=== PATIENT | male | born 1965 ===

== ENCOUNTER 2016-09-15 09:41 | Inpatient (IN) | payer OTHER ==
[2016-09-15 11:43] LABS: VENOUS BLOOD GAS BASE EXCESS 4.4 mmol/L (0.0-2.0); VENOUS BLOOD GAS PCO2 52 mmHg (40-60); VENOUS BLOOD PH 7.38 (7.32-7.43)
[2016-09-15 12:10] LABS: BASO # 0.1 K/uL (0.0-0.2); BASO % 0.6 % (0.0-2.0); EOS # 0.2 K/uL (0.0-0.7); EOS % 1.7 % (0.0-4.0); LYMPH # 1.1 K/uL (1.0-4.3); LYMPH % 9.5 % (20.0-40.0); MEAN CELL VOLUME 101.9 fl (80.0-94.0); MEAN CORPUSCULAR HEMOGLOBIN 34.4 pg (27.0-31.0); MEAN CORPUSCULAR HGB CONC 33.8 g/dL (33.0-37.0); MEAN PLATELET VOLUME 7.7 fl (7.2-11.7); MONO # 0.8 K/uL (0.0-0.8); MONO % 6.3 % (0.0-10.0); NEUT # 9.8 K/uL (1.8-7.0); NEUT % 81.9 % (50.0-75.0); PLATELET COUNT 234 K/uL (130-400); RED CELL DISTRIBUTION WIDTH 17.2 % (11.5-14.5)
[2016-09-15 12:20] LABS: ALB/GLOB RATIO 0.5 (1.0-2.1); ALKALINE PHOSPHATASE 209 U/L (38-126); ALT/SGPT 60 U/L (21-72); AST/SGOT 114 U/L (17-59); BLOOD UREA NITROGEN 6 mg/dl (9-20); CALCIUM 7.9 mg/dL (8.4-10.2); CARBON DIOXIDE 25 mmol/L (22-30); CHLORIDE 99 mmol/L (98-107); GFR AFRICAN-AMERICAN > 60; GLUCOSE,RANDOM 87 mg/dL (75-110); MAGNESIUM 1.7 MG/DL (1.6-2.3); PHOSPHOROUS 3.1 mg/dl (2.5-4.5); SODIUM 136 mmol/l (132-148); TOTAL PROTEIN 7.5 G/DL (6.3-8.2)
[2016-09-15 12:24] LABS: PARTIAL THROMBOPLASTIN TIME 31.8 SECONDS (23.3-32.5)
[2016-09-15 12:48] LABS: RBC URINE 6 /hpf (0-3); URINE BACTERIA RARE (<OCC); URINE BILIRUBIN SMALL (NEGATIVE); URINE BLOOD NEGATIVE (NEGATIVE); URINE COLOR AMBER (YELLOW); URINE GLUCOSE (UA) NEG (Normal); URINE KETONE NEGATIVE (NEGATIVE); URINE LEUKOCYTE ESTERASE MOD Leu/uL (Negative); URINE PROTEIN NEGATIVE (NEGATIVE); WBC URINE 6 /hpf (0-5)
--- NOTE | 2016-09-15 13:06 | ED PDOC ---
Syncope/Near Syncope/Dizzyness Time Seen by Provider: 09/15/16 10:46 Chief Complaint (Nursing): Dizziness/Lightheaded Chief Complaint (Provider): dizziness History Per: Patient History/Exam Limitations: no limitations Onset/Duration Of Symptoms: Days (x1 week) Current Symptoms Are (Timing): Still Present Fall Associated With With Symptoms: No Severity: Mild Additional Complaint(s): Patient is a 51 year old male, who has a history of Alcoholic Cirrhosis, brought in by EMS complaining of persistent dizziness x2 days. Dizziness is associated with fatigue, shortness of breath, intermittent chest pain, and abdominal pain. He reports that he cannot walk due to lower extremity edema. Patient was recently discharged from [facility]. Patient is unable to fill his prescriptions due to lack of insurance. Patient feels that his symptoms are worsening. PMD: none Discharge summary from [facility] [place]: 51 year old male with PMHx of alcohol abuse presents to the ED with 3 days history of dizziness. Patient describes dizziness as "unsteadiness" and denies "room spinning". Patient states he has not eaten in 4 days due to poor access to food. When asked why he has not eaten, he says it is difficult to get to a store. He does report heavy alcohol consumption, with last drink 1 day ago. He drinks 6 shots of Sandrine daily. He reports history of falls with last fall yesterday. Patient did not hit his head or had LOC. He admits to abdominal pain , that is 10/10, epigastric, intermittent for the past 3-4 days. Denies vomiting , diarrhea, constipation, BRB per rectum, melena. Admits to nausea over the past 3-4 days. He has no headaches, numbness, tingling, chest pain. He reports occasional leg swelling. He also admit to cough znd SOB over the past couple of days. No fevers or chills, but has noticed "harsh sounds" coming from his chest. Pt admitted to hospital for dizziness/ataxia and abdominal pain work up, started on antibiotics for pneumonia, CIWA protocol initiated, placed on ETOH withdrawal protocal/medical therapy/precautions. CT brain negative. CT abdomen positive for cecal/ascending colon thickening suggestive of colitis. Abd U/S w/ GB sludge and mild GB wall thickening, + Eduardo's via mobile pet groomer, hepatomegaly , echogenic liver may be seen in setting of hepatic parenchymal disease or fatty infiltration, splenomegaly, enlarged L kidney. Scrotal U/S - no testicular or epididymal pathology, B/L varicoceles, nonspecific B/L skin thickening/edema, poss chronic, B/L intra-scrotal sac hyper- echogenic contents consistent with B/L inguinal fat containing hernias- no bowel peristalsing contents noted on exam or recent CT. Surgery consulted for hernia- no intervention at this time. MRCP - not completed because patient did not want to finish. limited study. no evidence of cholecystitis, pancreatitis or ductal dilation. Pt had some high BPs during hospitalization- treated with anti- hypertensive with good results. GI saw/evaluated pt with recommendations for outpatient colonoscopy/EGD and dietary modifications. Pt seen/evaluated by surgery - no surgical interventions recommended. Lipase trended down and abdominal pain resolved over course of hospitalization. Pt seen by podiatory with nail care rendered. Pt's gait improved with PT, pt reports feeling anxious while walking - will d/c home with walker. Diagnoses Alcohol abuse, ataxia, pancytopenia and transaminitis due to ETOH abuse, pneumonia, hyperbilirubinemia, transient hypokalemia, morbid obesity, paraumbilical hernia, B/L inguinal hernias, scrotal edema, HTN, abdominal pain due to pancreatitis Past Medical History Reviewed: Historical Data, Nursing Documentation, Vital Signs Vital Signs: Last Vital Signs Temp 97.5 F L 09/15/16 10:19 Pulse 100 H 09/15/16 10:19 Resp 22 09/15/16 10:19 BP 126/91 H 09/15/16 10:19 Pulse Ox 99 09/15/16 10:19 - Medical History Other PMH: Alcoholic Cirrhosis - Surgical History Surgical History: No Surg Hx - Family History Family History: States: No Known Family Hx - Home Medications Home Medications: Ambulatory Orders Medication Instructions Recorded Furosemide [Lasix] 40 mg PO DAILY 09/15/16 Losartan [Cozaar] 25 mg PO DAILY 09/15/16 Spironolactone [Aldactone] 25 mg PO DAILY 09/15/16 - Allergies Allergies/Adverse Reactions: Allergies Allergy/AdvReac Type Severity Reaction Status Date / Time Penicillins Allergy RASH Verified 09/15/16 10:19 Review of Systems ROS Statement: Except As Marked, All Systems Reviewed And Found Negative Constitutional: Positive for: Other (fatigue). Negative for: Fever, Chills Cardiovascular: Positive for: Chest Pain (intermittent) Respiratory: Positive for: Shortness of Breath Gastrointestinal: Positive for: Abdominal Pain Neurological: Positive for: Dizziness Physical Exam - Reviewed Nursing Documentation Reviewed: Yes Vital Signs Reviewed: Yes - Physical Exam Appears: Positive for: Well, Non-toxic, No Acute Distress Head Exam: Positive for: ATRAUMATIC, NORMAL INSPECTION, NORMOCEPHALIC Skin: Negative for: Normal Color (disheveled sclerosis ) Neck: Positive for: Normal, Painless ROM Cardiovascular/Chest: Positive for: Tachycardia. Negative for: Gallop, Murmur Respiratory: Positive for: Decreased Breath Sounds (Lungs decreased air entry at the bases) Gastrointestinal/Abdominal: Positive for: Soft, Other (Umbilical hernia +ruq bruising). Negative for: Tenderness Extremity: Positive for: Normal ROM, Pedal Edema (Pitting edema with venous insufficiency) Neurologic/Psych: Positive for: Alert, Oriented - Laboratory Results Result Diagrams: 09/15/16 11:24 09/15/16 11:24 - ECG O2 Sat by Pulse Oximetry: 99 (RA) Pulse Ox Interpretation: Normal Medical Decision Making Medical Decision Making: Time: 10:50 Impression: Worsening Alcohol induced cirrhosis v ACS Plan: VBG EKG B-Type Natriuretic Peptide Magnesium Stat Phosphorous Stat Troponin CBC PTT/PT CXR 1:20PM Patient labs are significant for worsening etoh cirrhosis. Patient is coagulopathic with elevated bilirubin, lfts, and lactate. EKG shows NSR with incomplete LBBB. Trop x 1 negative. Lasix and aspirin ordered. I do not believe patient can be safely discharged. He has no PMD follow-up, cannot afford his medications and has worsening of symptoms since being discharged from hospital. He cannot ambulate safely and is reporting worsening dizziness, shortness of breath, and fatigue with ambulation. Spoke to Dr. Fraser who will transfer patient to tele observation. Scribe Attestation: Documented by Yudy Elena acting as a scribe for Emily Spencer MD. MD Syedibaman Attestation: All medical record entries made by the Scribe were at my direction and personally dictated by me. I have reviewed the chart and agree that the record accurately reflects my personal performance of the history, physical exam, medical decision making, and the department course for this patient. I have also personally directed, reviewed, and agree with the discharge instructions and disposition. Disposition - Clinical Impression Clinical Impression: Dizziness, Chest pain - Disposition Disposition Time: 13:00 Condition: FAIR
[2016-09-15 13:09] LABS: EOSINOPHIL 4 % (0-7); NEUTROPHIL 82 % (42-75); TOTAL CELLS COUNTED 100
[2016-09-15 13:10] LABS: LARGE PLATELETS PRESENT
--- NOTE | 2016-09-15 13:37 | RAD ---
HISTORY: Weakness. Portable study 11:56. COMPARISON: No prior. FINDINGS: LUNGS: No active pulmonary disease. PLEURA: No significant pleural effusion identified, no pneumothorax apparent. CARDIOVASCULAR: Cardiomegaly. No evidence of acute, significant cardiovascular disease. OSSEOUS STRUCTURES: No significant abnormalities. VISUALIZED UPPER ABDOMEN: Normal. OTHER FINDINGS: None. IMPRESSION: No active disease.
[2016-09-15 14:36] LABS: VENOUS BLOOD GAS BASE EXCESS 5.2 mmol/L (0.0-2.0); VENOUS BLOOD GAS PCO2 39 mmHg (40-60); VENOUS BLOOD PH 7.48 (7.32-7.43)
--- NOTE | 2016-09-15 15:38 | CP.PCM.HP ---
History of Present Illness - History of Present Illness History of Present Illness: 51 yo male with history of Alcoholic Liver Cirrhosis brought in because of dizziness, weakness and easy fatigability. He also has difficulty ambulating because of marked swelling of both legs. Patient was recently admitted for the same problem at [facility] and discharged on 09/09/2016. Patient however was not able to fill prescriptions due to lack of insurance and money. Present on Admission - Present on Admission Any Indicators Present on Admission: No History of DVT/PE: No History of Uncontrolled Diabetes: No Urinary Catheter: No Decubitus Ulcer Present: No Review of Systems - Review of Systems All systems: reviewed and no additional remarkable complaints except (aside from those mentioned above, 12 point system review were negative by me) Past Patient History - Past Social History Smoking Status: Never Smoked Chewing Tobacco Use: No Cigar Use: No Alcohol: > 2 Drinks/Day Drugs: Denies Home Situation {Lives}: Homeless - CARDIAC Hx Cardiac Disorders: No - PULMONARY Hx Respiratory Disorders: No - NEUROLOGICAL Hx Neurological Disorder: No - HEENT Hx HEENT Problems: No - RENAL Hx Chronic Kidney Disease: No - ENDOCRINE/METABOLIC Other/Comment: Morbid Obesity - HEMATOLOGICAL/ONCOLOGICAL Hx Blood Disorders: No - INTEGUMENTARY Hx Dermatological Problems: No - MUSCULOSKELETAL/RHEUMATOLOGICAL Hx Falls: Yes - GASTROINTESTINAL Other/Comment: Alcoholic Liver Cirrhosis - GENITOURINARY/GYNECOLOGICAL Hx Genitourinary Disorders: No - PSYCHIATRIC Hx Substance Use: Yes (alcohol abuse) - SURGICAL HISTORY Hx Surgeries: No - ANESTHESIA Hx Anesthesia: No Meds Allergies/Adverse Reactions: Allergies Allergy/AdvReac Type Severity Reaction Status Date / Time Penicillins Allergy RASH Verified 09/15/16 10:19 Physical Exam - Constitutional Appears: No Acute Distress - Head Exam Head Exam: ATRAUMATIC - Eye Exam Eye Exam: Scleral icterus - ENT Exam ENT Exam: Mucous Membranes Moist - Neck Exam Neck exam: Negative for: Meningismus - Respiratory Exam Respiratory Exam: absent: Rhonchi, Wheezes, Respiratory Distress - Cardiovascular Exam Cardiovascular Exam: REGULAR RHYTHM, +S1, +S2 - GI/Abdominal Exam GI & Abdominal Exam: Hernia (umbilical hernia), Soft. absent: Tenderness - Rectal Exam Rectal Exam: Deferred - Extremities Exam Extremities exam: Positive for: pedal edema. Negative for: calf tenderness - Back Exam Back exam: absent: tenderness - Neurological Exam Neurological exam: Alert, Oriented x3 - Psychiatric Exam Psychiatric exam: Normal Affect - Skin Skin Exam: Dry, Intact Results - Vital Signs Recent Vital Signs: Last Vital Signs Temp 98.5 F 09/15/16 15:00 Pulse 88 09/15/16 15:00 Resp 20 09/15/16 15:00 BP 136/74 09/15/16 15:00 Pulse Ox 96 09/15/16 15:00 - Labs Result Diagrams: 09/15/16 11:24 09/15/16 11:24 Labs: Laboratory Results - last 24 hr 09/15/16 09/15/16 14:15 14:32 pO2 42 VBG pH 7.48 H VBG pCO2 39 L VBG HCO3 28.6 VBG Total CO2 30.2 H VBG O2 Sat (Calc) 85.4 H VBG Base Excess 5.2 H VBG Potassium 3.5 L A-a O2 Difference 59.0 Sodium 130.0 L Chloride 103.0 Glucose 96 Lactate 1.2 FiO2 21.0 Crit Value Called To Md isatu hernandez Crit Value Called By 15 Crit Value Read Back Y Blood Gas Notified Time 1436 Ammonia 43 Venous Blood Potassium 3.5 L Assessment & Plan (1) Dizziness Status: Acute Comment: place on observation in telemetry. Troponin and EKG in am (2) Liver cirrhosis Status: Acute Comment: GI consult. Thiamine 100mg PO daily. Folic Acid 1mg PO daily. Ativan 1mg IV q 4hrs prn for agitation (3) Leg swelling Status: Acute Comment: venous doppler. refer to PT for evaluation and management
[2016-09-16 06:43] LABS: BASO # 0.1 K/uL (0.0-0.2); BASO % 1.1 % (0.0-2.0); EOS # 0.3 K/uL (0.0-0.7); EOS % 3.4 % (0.0-4.0); LYMPH % 9.8 % (20.0-40.0); MEAN CELL VOLUME 101.5 fl (80.0-94.0); MEAN CORPUSCULAR HEMOGLOBIN 34.9 pg (27.0-31.0); MEAN CORPUSCULAR HGB CONC 34.4 g/dL (33.0-37.0); MEAN PLATELET VOLUME 7.6 fl (7.2-11.7); MONO # 0.5 K/uL (0.0-0.8); MONO % 5.2 % (0.0-10.0); NEUT # 8.2 K/uL (1.8-7.0); NEUT % 80.5 % (50.0-75.0); RED CELL DISTRIBUTION WIDTH 17.3 % (11.5-14.5); WHITE BLOOD COUNT 10.1 K/uL (4.8-10.8)
[2016-09-16 06:51] LABS: ALB/GLOB RATIO 0.5 (1.0-2.1); ALKALINE PHOSPHATASE 185 U/L (38-126); ALT/SGPT 58 U/L (21-72); AST/SGOT 116 U/L (17-59); BLOOD UREA NITROGEN 6 mg/dl (9-20); CALCIUM 7.4 mg/dL (8.4-10.2); CARBON DIOXIDE 26 mmol/L (22-30); CHLORIDE 100 mmol/L (98-107); GFR AFRICAN-AMERICAN > 60; GLUCOSE,RANDOM 95 mg/dL (75-110); PARTIAL THROMBOPLASTIN TIME 32.4 SECONDS (23.3-32.5); POTASSIUM 3.5 MMOL/L (3.6-5.0); SODIUM 135 mmol/l (132-148); TOTAL PROTEIN 6.6 G/DL (6.3-8.2)
[2016-09-16] MEDS ORDERED: Vitamin A/D oint 60G TP SCH (10:15)
[2016-09-16] MEDS: Vitamins A & D Oint UD Foilpak TOP SCH ×2 (12:55→16:43)
--- NOTE | 2016-09-16 15:04 | US ---
PROCEDURE: Bilateral lower extremity venous duplex Doppler. HISTORY: Evaluate for deep venous thrombosis COMPARISON: None available. TECHNIQUE: Bilateral common femoral, superficial femoral, popliteal and posterior tibial veins were evaluated. Flow was assessed with color Doppler, compressibility, assessment of phasic flow and augmentation response. FINDINGS: COMMON FEMORAL VEIN: Right CFV: There is normal color flow, compressibility and augmentation response. Left CFV: There is normal color flow, compressibility and augmentation response. SUPERFICIAL FEMORAL VEIN: Right SFV: There is normal color flow, compressibility and augmentation response. Left SFV: There is normal color flow, compressibility and augmentation response. POPLITEAL VEIN: Right Popliteal: There is normal color flow, compressibility and augmentation response. Left Popliteal: There is normal color flow, compressibility and augmentation response. POSTERIOR TIBIAL VEIN: Right PTV: There is normal color flow, compressibility and augmentation response. Left PTV: There is normal color flow, compressibility and augmentation response. OTHER FINDINGS: There is diffuse subcutaneous edema. IMPRESSION: No evidence of deep venous thrombosis.
[2016-09-16] MEDS ORDERED: Potassium Chloride 20 mEq ER Tab PO ONE (15:52)
--- NOTE | 2016-09-16 15:59 | CP.PCM.PN ---
Subjective - Date & Time of Evaluation Date of Evaluation: 09/16/16 Time of Evaluation: 12:00 - Subjective Subjective: no fever no CP no SOB no abd pain Complains of bilat LE edema, scrotal edema dizziness resolved Objective - Vital Signs/Intake and Output Vital Signs (last 24 hours): Temp Pulse Resp BP Pulse Ox 98.1 F 74 20 135/76 99 09/16/16 12:26 09/16/16 12:54 09/16/16 12:26 09/16/16 12:54 09/16/16 12:26 - Medications Medications: Current Medications Clotrimazole (Lotrimin 1% Cream) 1 applic TOP BID [facility] Folic Acid (Folic Acid) 1 mg PO DAILY [facility] Last Admin: 09/16/16 08:53 Dose: 1 mg Furosemide (Lasix) 40 mg PO DAILY [facility] Last Admin: 09/16/16 08:52 Dose: 40 mg Furosemide (Lasix) 40 mg IV DAILY [facility] Lorazepam (Ativan) 1 mg IVP Q4 PRN PRN Reason: Agitation Propranolol HCl (Inderal) 10 mg PO TID [facility] Last Admin: 09/16/16 12:54 Dose: 10 mg Spironolactone (Aldactone) 25 mg PO BID [facility] Last Admin: 09/16/16 08:53 Dose: 25 mg Thiamine HCl (Vitamin B1 Tab) 100 mg PO DAILY [facility] Last Admin: 09/16/16 08:53 Dose: 100 mg Vitamin A (Vitamin A & D Oint Ud Foilpak) 1 ea TOP BID [facility] Last Admin: 09/16/16 12:55 Dose: 1 ea - Labs Labs: 09/16/16 05:05 09/16/16 05:05 PT 16.3 SECONDS (9.6-11.2) H 09/16/16 05:05 INR 1.57 (0.92-1.08) H 09/16/16 05:05 APTT 32.4 SECONDS (23.3-32.5) 09/16/16 05:05 - Constitutional Appears: No Acute Distress, Chronically Ill - Head Exam Head Exam: NORMAL INSPECTION, NORMOCEPHALIC - Eye Exam Eye Exam: EOMI, Normal appearance, PERRL Pupil Exam: NORMAL ACCOMODATION - ENT Exam ENT Exam: Mucous Membranes Moist, Normal External Ear Exam - Neck Exam Neck Exam: Full ROM. absent: Meningismus - Respiratory Exam Respiratory Exam: NORMAL BREATHING PATTERN. absent: Respiratory Distress - Cardiovascular Exam Cardiovascular Exam: REGULAR RHYTHM, +S1, +S2 - GI/Abdominal Exam GI & Abdominal Exam: Distended, Soft, Normal Bowel Sounds. absent: Tenderness Additional comments: ascites - Extremities Exam Extremities Exam: Full ROM, Normal Capillary Refill, Pedal Edema. absent: Calf Tenderness Additional comments: bilat LE stasis skin changes - Back Exam Back Exam: Full ROM. absent: CVA tenderness (L), CVA tenderness (R) - Neurological Exam Neurological Exam: Alert, Awake, CN II-XII Intact, Normal Gait, Oriented x3 Neuro motor strength exam: Left Upper Extremity: 5, Right Upper Extremity: 5, Left Lower Extremity: 5, Right Lower Extremity: 5 - Psychiatric Exam Psychiatric exam: Normal Affect, Normal Mood - Skin Skin Exam: Dry, Normal Color, Warm Assessment and Plan (1) Dizziness Status: Acute (2) Liver cirrhosis Status: Chronic (3) Anasarca Status: Chronic (4) Coagulopathy Status: Chronic (5) Alcoholism Status: Acute (6) DVT prophylaxis Status: Acute - Assessment and Plan (Free Text) Assessment: 51 y/o gent with hx of Alcoholism, Cirrhosis , was brought in by ambulance bec of dizziness and bilateral leg edema. (1) Dizziness, resolved, likely related to his Cirrhosis Status: Acute Trop negative VS stable (2) Liver cirrhosis with ascites , coagulopathy, Status: Chronic Hx of Alcoholism start Lasix IV cont Aldactone star5t Propanolol Vit K x 1 (3) Anasarca, generalized Status: Chronic pt with ascites, leg edema, scrotal swelling elevate scrotum IV Lasix, Aldactone (4) Coagulopathy sec to liver cirrhosis Status: Chronic Vit K PO x 1 ( 5) History Alcoholism no recent ETOH Thiamine and Folic acid (6) DVT prophylaxis Status: Acute no anticoag due to coagulopathy
--- NOTE | 2016-09-16 18:12 | CARD ---
APPROVED REPORT EKG Measurement Heart [id number] <Conclusion> Normal sinus rhythm Low voltage QRS Incomplete left bundle branch block Borderline ECG
[2016-09-17 06:11] LABS: HEMATOCRIT 31.3 % (35.0-51.0); MEAN CELL VOLUME 102.5 fl (80.0-94.0); MEAN CORPUSCULAR HEMOGLOBIN 34.6 pg (27.0-31.0); MEAN CORPUSCULAR HGB CONC 33.7 g/dL (33.0-37.0); RED CELL DISTRIBUTION WIDTH 17.1 % (11.5-14.5); WHITE BLOOD COUNT 11.4 K/uL (4.8-10.8)
[2016-09-17 06:26] LABS: ALB/GLOB RATIO 0.5 (1.0-2.1); ALKALINE PHOSPHATASE 193 U/L (38-126); ALT/SGPT 53 U/L (21-72); AST/SGOT 120 U/L (17-59); BILIRUBIN,TOTAL 4.2 mg/dl (0.2-1.3); BLOOD UREA NITROGEN 7 mg/dl (9-20); CALCIUM 7.3 mg/dL (8.4-10.2); CARBON DIOXIDE 27 mmol/L (22-30); CHLORIDE 98 mmol/L (98-107); GFR AFRICAN-AMERICAN > 60; GLUCOSE,RANDOM 93 mg/dL (75-110); POTASSIUM 3.3 MMOL/L (3.6-5.0); SODIUM 134 mmol/l (132-148); TOTAL PROTEIN 6.4 G/DL (6.3-8.2)
[2016-09-17] MEDS ORDERED: Potassium Chloride 20 mEq ER Tab PO ONE (08:12)
[2016-09-17] MEDS: Vitamins A & D Oint UD Foilpak TOP SCH ×2 (09:23→16:27)
--- NOTE | 2016-09-17 10:18 | CP.PCM.PN ---
Subjective - Date & Time of Evaluation Date of Evaluation: 09/17/16 Time of Evaluation: 09:30 - Subjective Subjective: No fever leg edema and scrotal edema sl better denies CP no SOB no abd pain Pt states last ETOH drink was 20 days ago Objective - Vital Signs/Intake and Output Vital Signs (last 24 hours): Temp Pulse Resp BP Pulse Ox 98.4 F 71 18 133/69 97 09/17/16 07:58 09/17/16 09:21 09/17/16 07:58 09/17/16 09:22 09/17/16 07:58 - Medications Medications: Current Medications Clotrimazole (Lotrimin 1% Cream) 1 applic TOP BID [facility] Last Admin: 09/17/16 09:23 Dose: 1 applic Folic Acid (Folic Acid) 1 mg PO DAILY [facility] Last Admin: 09/17/16 09:21 Dose: 1 mg Furosemide (Lasix) 40 mg IV Q12 [facility] Last Admin: 09/17/16 09:22 Dose: 40 mg Levofloxacin/Dextrose (Levaquin 500mg) 100 mls @ 100 mls/hr IVPB DAILY [facility] Lorazepam (Ativan) 1 mg IVP Q4 PRN PRN Reason: Agitation Propranolol HCl (Inderal) 10 mg PO TID [facility] Last Admin: 09/17/16 09:21 Dose: 10 mg Spironolactone (Aldactone) 50 mg PO BID [facility] Last Admin: 09/17/16 09:21 Dose: 50 mg Thiamine HCl (Vitamin B1 Tab) 100 mg PO DAILY [facility] Last Admin: 09/17/16 09:21 Dose: 100 mg Vitamin A (Vitamin A & D Oint Ud Foilpak) 1 ea TOP BID [facility] Last Admin: 09/17/16 09:23 Dose: 1 ea - Labs Labs: 09/17/16 05:53 09/17/16 05:53 PT 16.0 SECONDS (9.6-11.2) H 09/17/16 05:53 INR 1.54 (0.92-1.08) H 09/17/16 05:53 APTT 32.4 SECONDS (23.3-32.5) 09/16/16 05:05 - Constitutional Appears: No Acute Distress, Chronically Ill - Head Exam Head Exam: NORMAL INSPECTION, NORMOCEPHALIC - Eye Exam Eye Exam: EOMI, Normal appearance, PERRL Pupil Exam: NORMAL ACCOMODATION - ENT Exam ENT Exam: Mucous Membranes Moist, Normal External Ear Exam - Neck Exam Neck Exam: Full ROM. absent: Meningismus - Respiratory Exam Respiratory Exam: NORMAL BREATHING PATTERN. absent: Respiratory Distress - Cardiovascular Exam Cardiovascular Exam: REGULAR RHYTHM, +S1, +S2 - GI/Abdominal Exam GI & Abdominal Exam: Distended, Soft, Normal Bowel Sounds. absent: Tenderness Additional comments: ascites umbilical hernia - Extremities Exam Extremities Exam: Full ROM, Normal Capillary Refill, Pedal Edema. absent: Calf Tenderness Additional comments: bilat LE stasis skin changes, small skin tear LLE ( POA) - Back Exam Back Exam: Full ROM. absent: CVA tenderness (L), CVA tenderness (R) Genital - scrotal swelling - Neurological Exam Neurological Exam: Alert, Awake, CN II-XII Intact, Normal Gait, Oriented x3 Neuro motor strength exam: Left Upper Extremity: 5, Right Upper Extremity: 5, Left Lower Extremity: 5, Right Lower Extremity: 5 - Psychiatric Exam Psychiatric exam: Normal Affect, Normal Mood - Skin Skin Exam: Dry, Normal Color, Warm Assessment and Plan (1) Dizziness Status: Acute (2) Liver cirrhosis Status: Chronic (3) Anasarca Status: Chronic (4) Coagulopathy Status: Chronic (5) Alcoholism Status: Acute (6) DVT prophylaxis Status: Acute - Assessment and Plan (Free Text) Assessment: 51 y/o gent with hx of Alcoholism, Cirrhosis , was brought in by ambulance bec of dizziness and bilateral leg edema. (1) Dizziness, resolved, likely related to his Cirrhosis Status: Acute Trop negative VS stable (2) Liver cirrhosis with ascites , coagulopathy, Status: Chronic Hx of Alcoholism started Lasix IV 40 q 12 monitor K cont Aldactone started Propanolol Vit K x 1 given (3) Anasarca, generalized Status: Chronic pt with ascites, leg edema, scrotal swelling elevate scrotum IV Lasix, Aldactone IR for Paracentesis (4) Coagulopathy sec to liver cirrhosis Status: Chronic Vit K PO x 1 ( 5) History Alcoholism no recent ETOH Thiamine and Folic acid (6) DVT prophylaxis Status: Acute no anticoag due to coagulopathy (7) Gait disturbance due to severe pedal edema PT consulted rec TCU however pt has no insurance, will maximize PT while in house Rolling walker IV diuresis while in the hospital (8) Small Skin Tear LLE due to stasis and edema ( POA) - small area of skin tear - paint specialist consulted
[2016-09-17 21:49] VITALS: RESP 20
[2016-09-18 08:41] LABS: HEMATOCRIT 32.2 % (35.0-51.0); MEAN CELL VOLUME 102.1 fl (80.0-94.0); MEAN CORPUSCULAR HEMOGLOBIN 34.5 pg (27.0-31.0); MEAN CORPUSCULAR HGB CONC 33.8 g/dL (33.0-37.0); RED CELL DISTRIBUTION WIDTH 17.6 % (11.5-14.5); WHITE BLOOD COUNT 11.5 K/uL (4.8-10.8)
[2016-09-18 09:05] LABS: ALB/GLOB RATIO 0.5 (1.0-2.1); ALKALINE PHOSPHATASE 208 U/L (38-126); ALT/SGPT 57 U/L (21-72); AST/SGOT 145 U/L (17-59); BILIRUBIN,TOTAL 4.5 mg/dl (0.2-1.3); BLOOD UREA NITROGEN 8 mg/dl (9-20); CALCIUM 7.4 mg/dL (8.4-10.2); CARBON DIOXIDE 29 mmol/L (22-30); CHLORIDE 95 mmol/L (98-107); GFR AFRICAN-AMERICAN > 60; GLUCOSE,RANDOM 118 mg/dL (75-110); POTASSIUM 3.9 MMOL/L (3.6-5.0); SODIUM 134 mmol/l (132-148); TOTAL PROTEIN 6.8 G/DL (6.3-8.2)
[2016-09-18] MEDS: Pantoprazole 40 mg EC Tab PO SCH (10:18)
[2016-09-18] MEDS: Vitamins A & D Oint UD Foilpak TOP SCH ×2 (10:18→16:44)
--- NOTE | 2016-09-18 10:53 | CP.PCM.PN ---
Subjective - Date & Time of Evaluation Date of Evaluation: 09/18/16 Time of Evaluation: 10:45 - Subjective Subjective: No fever Gait improving, ambulates with walker no CP no SOB Abdominal distention bilat leg edema, scrotal edema Objective - Vital Signs/Intake and Output Vital Signs (last 24 hours): Temp Pulse Resp BP Pulse Ox 98.6 F 66 20 155/81 H 98 09/18/16 07:55 09/18/16 10:17 09/18/16 07:55 09/18/16 10:17 09/18/16 07:55 Intake and Output: 09/18/16 09/18/16 06:59 18:59 Intake Total 840 Output Total 910 Balance -70 - Medications Medications: Current Medications Clotrimazole (Lotrimin 1% Cream) 1 applic TOP BID [facility] Last Admin: 09/18/16 10:32 Dose: 1 applic Folic Acid (Folic Acid) 1 mg PO DAILY [facility] Last Admin: 09/18/16 10:17 Dose: 1 mg Furosemide (Lasix) 40 mg IV Q12 [facility] Last Admin: 09/17/16 20:57 Dose: 40 mg Levofloxacin/Dextrose (Levaquin 500mg) 100 mls @ 100 mls/hr IVPB DAILY [facility] Last Admin: 09/18/16 10:32 Dose: 100 mls/hr Lorazepam (Ativan) 1 mg IVP Q4 PRN PRN Reason: Agitation Pantoprazole Sodium (Protonix Ec Tab) 40 mg PO DAILY [facility] Last Admin: 09/18/16 10:18 Dose: 40 mg Propranolol HCl (Inderal) 10 mg PO TID [facility] Last Admin: 09/18/16 10:17 Dose: 10 mg Spironolactone (Aldactone) 50 mg PO TID [facility] Thiamine HCl (Vitamin B1 Tab) 100 mg PO DAILY [facility] Last Admin: 09/18/16 10:18 Dose: 100 mg Vitamin A (Vitamin A & D Oint Ud Foilpak) 1 ea TOP BID [facility] Last Admin: 09/18/16 10:18 Dose: 1 ea - Labs Labs: 09/18/16 06:40 09/18/16 06:40 PT 16.0 SECONDS (9.6-11.2) H 09/17/16 05:53 INR 1.54 (0.92-1.08) H 09/17/16 05:53 APTT 32.4 SECONDS (23.3-32.5) 09/16/16 05:05 - Constitutional Appears: No Acute Distress, Chronically Ill - Head Exam Head Exam: NORMAL INSPECTION, NORMOCEPHALIC - Eye Exam Eye Exam: EOMI, Normal appearance, PERRL Pupil Exam: NORMAL ACCOMODATION - ENT Exam ENT Exam: Mucous Membranes Moist, Normal External Ear Exam - Neck Exam Neck Exam: Full ROM. absent: Meningismus - Respiratory Exam Respiratory Exam: NORMAL BREATHING PATTERN. absent: Respiratory Distress - Cardiovascular Exam Cardiovascular Exam: REGULAR RHYTHM, +S1, +S2 - GI/Abdominal Exam GI & Abdominal Exam: Distended, Soft, Normal Bowel Sounds. absent: Tenderness Additional comments: ascites umbilical hernia - Extremities Exam Extremities Exam: Full ROM, Normal Capillary Refill, Pedal Edema. absent: Calf Tenderness Additional comments: bilat LE stasis skin changes, small skin tear LLE ( POA) - Back Exam Back Exam: Full ROM. absent: CVA tenderness (L), CVA tenderness (R) Genital - scrotal swelling - Neurological Exam Neurological Exam: Alert, Awake, CN II-XII Intact, Normal Gait, Oriented x3 Neuro motor strength exam: Left Upper Extremity: 5, Right Upper Extremity: 5, Left Lower Extremity: 5, Right Lower Extremity: 5 - Psychiatric Exam Psychiatric exam: Normal Affect, Normal Mood - Skin Skin Exam: Dry, Normal Color, Warm Assessment and Plan (1) Dizziness Status: Acute (2) Liver cirrhosis Status: Chronic (3) Anasarca Status: Chronic (4) Coagulopathy Status: Chronic (5) Alcoholism Status: Acute (6) DVT prophylaxis Status: Acute - Assessment and Plan (Free Text) Assessment: 51 y/o Homeless luis miguel with hx of Alcoholism, Cirrhosis , was brought in by ambulance bec of dizziness and bilateral leg edema. Pt has gait imbalance due to severe leg edema , PT consulted and will maximize diuresis and d/c pt to [facility] (1) Dizziness, resolved, likely related to his Cirrhosis Status: Acute Trop negative VS stable (2) Liver cirrhosis with ascites , coagulopathy, Status: Chronic Hx of Alcoholism started Lasix IV 40 q 12 monitor K cont Aldactone, increase to 50mg tid started Propanolol Vit K x 1 given IV Levaquin for SBP proph (3) Anasarca, generalized Status: Chronic pt with ascites, leg edema, scrotal swelling elevate scrotum IV Lasix, Aldactone IR for Paracentesis , large volume will give IV albumin in am prior to Paracentesis (4) Coagulopathy sec to liver cirrhosis Status: Chronic Vit K PO x 1 ( 5) History Alcoholism no recent ETOH Thiamine and Folic acid (6) DVT prophylaxis Status: Acute no anticoag due to coagulopathy (7) Gait disturbance due to severe pedal edema PT consulted rec TCU however pt has no insurance, will maximize PT while in house Rolling walker IV diuresis while in the hospital (8) Small Skin Tear LLE due to stasis and edema ( POA) - small area of skin tear - bioinformatics support specialist consulted (9) Hypokalemia sec to diuretics replace with PO KCl
[2016-09-19 07:34] LABS: HEMATOCRIT 31.1 % (35.0-51.0); MEAN CORPUSCULAR HGB CONC 33.8 g/dL (33.0-37.0); RED CELL DISTRIBUTION WIDTH 17.7 % (11.5-14.5); WHITE BLOOD COUNT 9.7 K/uL (4.8-10.8)
[2016-09-19 07:36] LABS: BLOOD UREA NITROGEN 8 mg/dl (9-20); CARBON DIOXIDE 31 mmol/L (22-30); CHLORIDE 94 mmol/L (98-107); GFR AFRICAN-AMERICAN > 60; GLUCOSE,RANDOM 92 mg/dL (75-110); SODIUM 134 mmol/l (132-148)
[2016-09-19 07:37] LABS: CALCIUM 7.3 mg/dL (8.4-10.2)
[2016-09-19 07:38] LABS: MEAN CELL VOLUME 103.6 fl (80.0-94.0)
[2016-09-19 07:44] LABS: PARTIAL THROMBOPLASTIN TIME 32.3 SECONDS (23.3-32.5)
[2016-09-19] MEDS ORDERED: Albumin Human 25% (12.5 gm/50 ml) IV ONE (08:00)
[2016-09-19] MEDS: Pantoprazole 40 mg EC Tab PO SCH (09:12)
[2016-09-19] MEDS: Vitamins A & D Oint UD Foilpak TOP SCH (09:16)
--- NOTE | 2016-09-19 16:09 | CP.PCM.DIS ---
Provider - Provider Date of Admission: 09/16/16 15:58 Attending physician: Fuentes Fraser MD Primary care physician: None Time Spent in preparation of Discharge (in minutes): 20 Hospital Course - Lab Results Lab Results: Most Recent Lab Values WBC 9.7 K/uL (4.8-10.8) 09/19/16 05:45 RBC 3.00 Mil/uL (4.40-5.90) L 09/19/16 05:45 Hgb 10.5 g/dL (12.0-18.0) L 09/19/16 05:45 Hct 31.1 % (35.0-51.0) L 09/19/16 05:45 MCV 103.6 fl (80.0-94.0) H 09/19/16 05:45 MCH 35.0 pg (27.0-31.0) H 09/19/16 05:45 MCHC 33.8 g/dL (33.0-37.0) 09/19/16 05:45 RDW 17.7 % (11.5-14.5) H 09/19/16 05:45 Plt Count 216 K/uL (130-400) 09/19/16 05:45 MPV 7.6 fl (7.2-11.7) 09/16/16 05:05 Neut % (Auto) 80.5 % (50.0-75.0) H 09/16/16 05:05 Lymph % (Auto) 9.8 % (20.0-40.0) L 09/16/16 05:05 [place] % (Auto) 5.2 % (0.0-10.0) 09/16/16 05:05 Eos % (Auto) 3.4 % (0.0-4.0) 09/16/16 05:05 Baso % (Auto) 1.1 % (0.0-2.0) 09/16/16 05:05 Neut # 8.2 K/uL (1.8-7.0) H 09/16/16 05:05 Lymph # 1.0 K/uL (1.0-4.3) 09/16/16 05:05 [place] # 0.5 K/uL (0.0-0.8) 09/16/16 05:05 Eos # 0.3 K/uL (0.0-0.7) 09/16/16 05:05 Baso # 0.1 K/uL (0.0-0.2) 09/16/16 05:05 Neutrophils % (Manual) 82 % (42-75) H 09/15/16 11:24 Band Neutrophils % 3 % (0-2) H 09/15/16 11:24 Lymphocytes % (Manual) 2 % (20-50) L 09/15/16 11:24 Monocytes % (Manual) 9 % (0-10) 09/15/16 11:24 Eosinophils % (Manual) 4 % (0-7) 09/15/16 11:24 Platelet Estimate Normal (NORMAL) 09/15/16 11:24 Large Platelets Present 09/15/16 11:24 Anisocytosis (manual) Slight 09/15/16 11:24 Macrocytosis (manual) Slight 09/15/16 11:24 PT 16.6 SECONDS (9.6-11.2) H 09/19/16 05:45 INR 1.60 (0.92-1.08) H 09/19/16 05:45 APTT 32.3 SECONDS (23.3-32.5) 09/19/16 05:45 pO2 42 mm/Hg (30-55) 09/15/16 14:32 VBG pH 7.48 (7.32-7.43) H 09/15/16 14:32 VBG pCO2 39 mmHg (40-60) L 09/15/16 14:32 VBG HCO3 28.6 mmol/L 09/15/16 14:32 VBG Total CO2 30.2 mmol/L (22-28) H 09/15/16 14:32 VBG O2 Sat (Calc) 85.4 % (40-65) H 09/15/16 14:32 VBG Base Excess 5.2 mmol/L (0.0-2.0) H 09/15/16 14:32 VBG Potassium 3.5 mmol/L (3.6-5.2) L 09/15/16 14:32 A-a O2 Difference 59.0 mm/Hg 09/15/16 14:32 Sodium 130.0 mmol/L (132-148) L 09/15/16 14:32 Chloride 103.0 mmol/L (98-107) 09/15/16 14:32 Glucose 96 mg/dL (75-110) 09/15/16 14:32 Lactate 1.2 mmol/L (0.7-2.1) 09/15/16 14:32 FiO2 21.0 % 09/15/16 14:32 Crit Value Called To Md isatu hernandez 09/15/16 14:32 Crit Value Called By 15 09/15/16 14:32 Crit Value Read Back Y 09/15/16 14:32 Blood Gas Notified Time 1436 09/15/16 14:32 Sodium 134 mmol/l (132-148) 09/19/16 05:45 Potassium 4.0 MMOL/L (3.6-5.0) 09/19/16 05:45 Chloride 94 mmol/L (98-107) L 09/19/16 05:45 Carbon Dioxide 31 mmol/L (22-30) H 09/19/16 05:45 Anion Gap 13 (10-20) 09/19/16 05:45 BUN 8 mg/dl (9-20) L 09/19/16 05:45 Creatinine 0.8 mg/dL (0.8-1.5) 09/19/16 05:45 Est GFR ( Amer) > 60 09/19/16 05:45 Est GFR (Non-Af Amer) > 60 09/19/16 05:45 Random Glucose 92 mg/dL (75-110) 09/19/16 05:45 Calcium 7.3 mg/dL (8.4-10.2) L 09/19/16 05:45 Phosphorus 3.1 mg/dl (2.5-4.5) 09/15/16 11:24 Magnesium 1.7 MG/DL (1.6-2.3) 09/15/16 11:24 Total Bilirubin 4.5 mg/dl (0.2-1.3) H 09/18/16 06:40 AST 145 U/L (17-59) H D 09/18/16 06:40 ALT 57 U/L (21-72) 09/18/16 06:40 Alkaline Phosphatase 208 U/L (38-126) H 09/18/16 06:40 Ammonia 43 umo/L (16-60) 09/15/16 14:15 Troponin I < 0.0120 ng/mL (0.00-0.120) 09/15/16 11:24 NT-Pro-B Natriuret Pep 847 pg/ml (0-900) 09/15/16 11:24 Total Protein 6.8 G/DL (6.3-8.2) 09/18/16 06:40 Albumin 2.2 g/dL (3.5-5.0) L 09/18/16 06:40 Globulin 4.6 gm/dL (2.2-3.9) H 09/18/16 06:40 Albumin/Globulin Ratio 0.5 (1.0-2.1) L 09/18/16 06:40 Venous Blood Potassium 3.5 mmol/L (3.6-5.2) L 09/15/16 14:32 Urine Color Luana (YELLOW) 09/15/16 12:15 Urine Clarity Slighty-cloudy (Clear) 09/15/16 12:15 Urine pH 7.0 (5.0-8.0) 09/15/16 12:15 Ur Specific [place] 1.011 (1.003-1.030) 09/15/16 12:15 Urine Protein Negative mg/dL (NEGATIVE) 09/15/16 12:15 Urine Glucose (UA) Neg mg/dL (Normal) 09/15/16 12:15 Urine Ketones Negative mg/dL (NEGATIVE) 09/15/16 12:15 Urine Blood Negative (NEGATIVE) 09/15/16 12:15 Urine Nitrate Negative (NEGATIVE) 09/15/16 12:15 Urine Bilirubin Small (NEGATIVE) 09/15/16 12:15 Urine Urobilinogen 4.0 mg/dL (0.2-1.0) 09/15/16 12:15 Ur Leukocyte Esterase Mod Michelle/uL (Negative) 09/15/16 12:15 Urine RBC (Auto) 6 /hpf (0-3) H 09/15/16 12:15 Urine Microscopic WBC 6 /hpf (0-5) H 09/15/16 12:15 Ur Squamous Epith Cells 7 /hpf (0-5) H 09/15/16 12:15 Urine Bacteria Rare (<OCC) 09/15/16 12:15 - Hospital Course Hospital Course: 51 y/o Homeless gent with hx of Alcoholism, Cirrhosis, ataxia, transaminitis due to ETOH abuse,morbid obesity, paraumbilical hernia, B/L inguinal hernias, scrotal edema, HTN, was brought in by ambulance because of dizziness and bilateral leg edema. Patient was just discharged from [facility] 09/09 after being treated for gait instability and ataxia with physical therapy and was discharged to half-way with rolling walker. Patient stated that was not able to buy his medications because he does not have any income. He states that does not want to go to half-way because he might get more sick Patient was admitted again for gait instability , dizziness, anasarca . He was treated with diuretics , lasix, aldactone with some improvement of his edema He refused abdominal parasenthesis stating that the procedure is painful Physical therapy was consulted for gait eval and gait training. Patient able to ambulate with steady gait with his walker.At present patient is at his baseline , hemodynamically atable, afebrile, with no source of infection. Counselled patient on ETOH abuse , personal hygiene especially feet care. stucco worker was consulted to provide information about half-way Will discharge patient to half-way since at this time there is no acute active medical problems to be addressed and main issue seems to be of social nature. Information provided about half-way (1) Dizziness, resolved, likely related to his Cirrhosis (2) Liver cirrhosis with ascites , coagulopathy, continue aldactone, lasix , propanolol refused abdominal parasenthesis (3) Anasarca, generalized pt with ascites, leg edema, scrotal swelling improved minimally with diuretics continue Lasix, Aldactone IR consulted for olarge volume Paracentesis but patient refsued (4) Coagulopathy sec to liver cirrhosis Chronic Vit K PO x 1 given ( 5) History Alcoholism no recent ETOH Thiamine and Folic acid (6) Gait disturbance due to severe pedal edema walking with steady gait with rolling walker and cleared by physical therapy today with Rolling walker (7) Small Skin Tear LLE due to stasis and edema ( POA) small area of skin tear landscaping specialist consulted continue dry dressing 8.Morbid obesity BMI 35 9.Umbilical and inguinal hernia stable, no surgical intervention 10Hypokalemia sec to diuretics replaced with PO KCl Discharge Exam - Head Exam Head Exam: NORMAL INSPECTION, NORMOCEPHALIC - Eye Exam Eye Exam: Normal appearance, PERRL Pupil Exam: NORMAL ACCOMODATION - ENT Exam ENT Exam: Mucous Membranes Moist, Normal Exam - Neck Exam Neck exam: Full Rom, Normal Inspection - Respiratory Exam Respiratory Exam: NORMAL BREATHING PATTERN. absent: Accessory Muscle Use, Rales , Rhonchi, Wheezes, Respiratory Distress - Cardiovascular Exam Cardiovascular Exam: REGULAR RHYTHM, +S1, +S2. absent: JVD - GI/Abdominal Exam GI & Abdominal Exam: Distended (with ascites), Hernia (umbilical), Soft. absent : Guarding, Rebound, Rigid, Tenderness - Rectal Exam Rectal Exam: Deferred - Exam Exam: Scrotal Swelling (edema) - Extremities Exam Extremities exam: pedal edema (with chronic skin changes, small LLE medial distal aspect 2x2 cm wound with clean dry base ), pedal pulses present - Neurological Exam Neurological exam: Alert, CN II-XII Intact, Oriented x3 - Psychiatric Exam Psychiatric exam: Normal Affect - Skin Skin Exam: Dry, Warm Discharge Plan - Discharge Medications Prescriptions: Spironolactone [Aldactone] 50 mg PO TID #90 tab Folic Acid 1 mg PO DAILY #30 tab Propranolol [Inderal] 10 mg PO TID #90 tab Furosemide [Lasix] 40 mg PO BID #60 tab Pantoprazole [Protonix EC Tab] 40 mg PO DAILY #30 ect Thiamine [Vitamin B1 Tab] 100 mg PO DAILY #30 tab - Follow Up Plan Condition: STABLE Disposition: HOME/ ROUTINE Patient education suggested?: Yes Instructions: Cirrhosis (DC) Referrals: [facility] [Outside]
[2016-09-19 16:38] VITALS: BP 136/63; PULSE 55; TEMP 99; O2SAT 99
== END 2016-09-19 17:04 | disposition home or self-care (01) | DRG 557 ==
LOC: H.ER 09:41 → H.ERHOLD 13:36 → H.TEL 15:06 → OBSVTOIN 09-16 15:58 → H.MEDSURG1 09-17 21:32
DX: K70.31 Alcoholic cirrhosis of liver with ascites (principal); J18.9 Pneumonia, unspecified organism; D61.818 Other pancytopenia; K85.90 Acute pancreatitis without necrosis or infection, unspecified; D68.9 Coagulation defect, unspecified; R16.0 Hepatomegaly, not elsewhere classified; E66.01 Morbid (severe) obesity due to excess calories; E87.6 Hypokalemia; F10.20 Alcohol dependence, uncomplicated; R74.0 Nonspecific elevation of levels of transaminase and lactic acid dehydrogenase [LDH]; Z68.35 Body mass index [BMI] 35.0-35.9, adult; Z59.0 Homelessness; I10 Essential (primary) hypertension; K42.9 Umbilical hernia without obstruction or gangrene; K40.20 Bilateral inguinal hernia, without obstruction or gangrene, not specified as recurrent; N50.89 Other specified disorders of the male genital organs; Z79.899 Other long term (current) drug therapy; Z91.81 History of falling; K52.9 Noninfective gastroenteritis and colitis, unspecified; Z88.0 Allergy status to penicillin; R00.0 Tachycardia, unspecified; I87.2 Venous insufficiency (chronic) (peripheral); I44.7 Left bundle-branch block, unspecified; R42 Dizziness and giddiness; M79.89 Other specified soft tissue disorders; R26.9 Unspecified abnormalities of gait and mobility; R60.1 Generalized edema

== ENCOUNTER 2016-09-22 15:03 | Emergency (ER) | payer OTHER ==
[2016-09-22 15:16] VITALS: BP 126/75; RESP 16; TEMP 98.2; O2SAT 98
[2016-09-22 17:49] LABS: BASO # 0.1 K/uL (0.0-0.2); BASO % 1.2 % (0.0-2.0); EOS # 0.2 K/uL (0.0-0.7); EOS % 2.4 % (0.0-4.0); HEMATOCRIT 29.7 % (35.0-51.0); LYMPH # 1.2 K/uL (1.0-4.3); LYMPH % 13.6 % (20.0-40.0); MEAN CELL VOLUME 103.6 fl (80.0-94.0); MEAN CORPUSCULAR HEMOGLOBIN 34.5 pg (27.0-31.0); MEAN CORPUSCULAR HGB CONC 33.3 g/dL (33.0-37.0); MEAN PLATELET VOLUME 7.2 fl (7.2-11.7); MONO # 0.9 K/uL (0.0-0.8); NEUT # 6.2 K/uL (1.8-7.0); NEUT % 72.8 % (50.0-75.0); NRBC % 0.1 % (0.0-0.0); RED CELL DISTRIBUTION WIDTH 17.5 % (11.5-14.5); WHITE BLOOD COUNT 8.5 K/uL (4.8-10.8)
[2016-09-22 18:05] LABS: RBC URINE 1 /hpf (0-3); URINE BACTERIA RARE (<OCC); URINE BILIRUBIN SMALL (NEGATIVE); URINE BLOOD NEGATIVE (NEGATIVE); URINE COLOR AMBER (YELLOW); URINE GLUCOSE (UA) NEG (Normal); URINE KETONE NEGATIVE (NEGATIVE); URINE LEUKOCYTE ESTERASE TRACE Leu/uL (Negative); URINE PROTEIN NEGATIVE (NEGATIVE); WBC URINE 4 /hpf (0-5)
[2016-09-22 18:09] LABS: ALB/GLOB RATIO 0.5 (1.0-2.1); ALCOHOL SERUM < 10 mg/dl (0-10); ALKALINE PHOSPHATASE 256 U/L (38-126); ALT/SGPT 65 U/L (21-72); AST/SGOT 152 U/L (17-59); BILIRUBIN,TOTAL 3.2 mg/dl (0.2-1.3); BLOOD UREA NITROGEN 7 mg/dl (9-20); CALCIUM 7.8 mg/dL (8.4-10.2); CARBON DIOXIDE 28 mmol/L (22-30); CHLORIDE 96 mmol/L (98-107); GFR AFRICAN-AMERICAN > 60; GLUCOSE,RANDOM 100 mg/dL (75-110); POTASSIUM 3.7 MMOL/L (3.6-5.0); SODIUM 130 mmol/l (132-148)
[2016-09-22 18:26] LABS: PARTIAL THROMBOPLASTIN TIME 34.5 SECONDS (23.3-32.5)
--- NOTE | 2016-09-22 18:49 | CT ---
PROCEDURE: CT HEAD WITHOUT CONTRAST. HISTORY: dizziness COMPARISON: None available. TECHNIQUE: Axial computed tomography images were obtained through the head/brain without intravenous contrast. Radiation dose: Total exam DLP = 789 mGy-cm. This CT exam was performed using one or more of the following dose reduction techniques: Automated exposure control, adjustment of the mA and/or kV according to patient size, and/or use of iterative reconstruction technique. FINDINGS: HEMORRHAGE: No intracranial hemorrhage. BRAIN: No mass effect or edema. No atrophy or chronic microvascular ischemic changes. VENTRICLES: Unremarkable. No hydrocephalus. CALVARIUM: Unremarkable. PARANASAL SINUSES: Unremarkable as visualized. No significant inflammatory changes. MASTOID AIR CELLS: Unremarkable as visualized. No inflammatory changes. OTHER FINDINGS: None. IMPRESSION: Normal CT of the Head.
--- NOTE | 2016-09-22 19:00 | ED PDOC ---
HPI: General Adult Time Seen by Provider: 09/22/16 16:12 Chief Complaint (Nursing): Dizziness/Lightheaded History Per: Patient Additional Complaint(s): Pt. states this morning he developed dizziness which resolved after several minutes. Pt. states he was seen for this last week and admitted and was found to have cirrhosis. Pt. was prescribed meds but has not gotten meds filled due to lack of money. Denies head injury, trauma, fever, N/V/D, hearing changes, weakness, headache. Past Medical History Reviewed: Historical Data, Nursing Documentation, Vital Signs Vital Signs: Last Vital Signs Temp 98.2 F 09/22/16 15:13 Pulse 92 H 09/22/16 15:13 Resp 16 09/22/16 15:13 BP 126/75 09/22/16 15:13 Pulse Ox 98 09/22/16 19:47 - Medical History PMH: CHF, HTN Denies: Chronic Kidney Disease Other PMH: cirrhosis - Family History Family History: States: No Known Family Hx - Home Medications Home Medications: Ambulatory Orders Medication Instructions Recorded Clotrimazole 1% Cream [Lotrimin 1% 1 applic TOP BID tube 09/19/16 CREAM] Folic Acid 1 mg PO DAILY #30 tab 09/19/16 Furosemide [Lasix] 40 mg PO BID #60 tab 09/19/16 Pantoprazole [Protonix EC Tab] 40 mg PO DAILY #30 ect 09/19/16 Propranolol [Inderal] 10 mg PO TID #90 tab 09/19/16 Spironolactone [Aldactone] 50 mg PO TID #90 tab 09/19/16 Thiamine [Vitamin B1 Tab] 100 mg PO DAILY #30 tab 09/19/16 Meclizine [Antivert] 1 - 2 tab PO Q6 PRN #30 tab 09/22/16 - Allergies Allergies/Adverse Reactions: Allergies Allergy/AdvReac Type Severity Reaction Status Date / Time Penicillins Allergy RASH Verified 09/22/16 15:13 Review of Systems ROS Statement: Except As Marked, All Systems Reviewed And Found Negative Physical Exam - Reviewed Nursing Documentation Reviewed: Yes Vital Signs Reviewed: Yes - Physical Exam Appears: Positive for: Well, Non-toxic, No Acute Distress Head Exam: Positive for: ATRAUMATIC, NORMAL INSPECTION, NORMOCEPHALIC Skin: Positive for: Normal Color, Warm. Negative for: Rash Eye Exam: Positive for: EOMI, Normal appearance, PERRL ENT: Positive for: Normal ENT Inspection Neck: Positive for: Normal, Painless ROM Cardiovascular/Chest: Positive for: Regular Rate, Rhythm Respiratory: Positive for: CNT, Normal Breath Sounds Gastrointestinal/Abdominal: Positive for: Normal Exam, Bowel Sounds, Soft. Negative for: Tenderness Back: Positive for: Normal Inspection Extremity: Positive for: Normal ROM Neurologic/Psych: Positive for: Alert, Oriented, Gait (steady, unassisted). Negative for: Aphasia, Facial Droop - Laboratory Results Result Diagrams: 09/22/16 17:40 09/22/16 17:40 - ECG ECG: Positive for: Interpreted By Me ECG Rhythm: Positive for: Sinus Rhythm. Negative for: ST/T Changes Rate: 80 O2 Sat by Pulse Oximetry: 98 - Progress ED Course And Treament: CT head w/o contrast: negative. Case d/w Dr. Spring who agrees with plan that if pt. is feeling better and has steady gait he may be discharged. On re-evaluation, pt. reports no episodes of dizziness while in ED. Gait steady and unassisted. Repeat neuro is non-focal. Disposition - Clinical Impression Clinical Impression: Dizziness - Patient ED Disposition Is Patient to be Admitted: No - Disposition Referrals: [facility] [Outside] Disposition: Routine/Home Disposition Time: 19:46 Condition: IMPROVED Additional Instructions: Fill your prescriptions as previously prescribed. Follow up with [facility] in 2 days for further evaluation. Prescriptions: Meclizine [Antivert] 1 - 2 tab PO Q6 PRN #30 tab PRN Reason: dizziness Instructions: Dizziness (ED) Print Language: NORWEGIAN
[2016-09-22 19:49] VITALS: PULSE 80
--- NOTE | 2016-09-23 08:31 | CARD ---
APPROVED REPORT EKG Measurement Heart [id number] <Conclusion> Normal sinus rhythm Low voltage QRS Incomplete left bundle branch block Borderline ECG
== END 2016-09-22 19:40 | disposition home or self-care (01) ==
LOC: H.ER 15:03
DX: R42 Dizziness and giddiness (principal); I10 Essential (primary) hypertension; I50.9 Heart failure, unspecified; K74.60 Unspecified cirrhosis of liver; Z88.0 Allergy status to penicillin